=== PATIENT | male | born 1980 | race Caucasian/White ===

== ENCOUNTER 2016-09-07 00:19 | Emergency (ER) | payer OTHER ==
[~2016-09-07] VITALS: Ht 180.3 cm; Wt 81.8 kg
[~2016-09-07 00:19] MED LIST: AMOXICILLIN 8751 TAB PO; DOXYCYCLINE 10100 MG PO; FLAGYL500 MG PO; LEVAQUIN 5500 MG/TA1 PO; NO HOME MEDICATIONS; NORCO 325 MG-51 TAB PO; PERCOCET 325 MG1 TA2 PO; TAMIFLU 75MG75 MG PO; ZOFRAN 4MG T4 MG/TAB PO
[2016-09-07 00:21] VITALS: BP 132/82; PULSE 80; TEMP 98.7
[2016-09-07] MEDS ORDERED: ULTRAM 50MG TAB50 MG PO (01:03)
== END 2016-09-07 01:14 | disposition home or self-care (01) ==
LOC: COL.ER 00:19
DX: S90.112A Contusion of left great toe without damage to nail, initial encounter (principal); W22.8XXA Striking against or struck by other objects, initial encounter; Y92.009 Unspecified place in unspecified non-institutional (private) residence as the place of occurrence of the external cause

== ENCOUNTER → 2016-09-18 | Outpatient (CLI) | payer OTHER ==
[~2016-09-18] MED LIST changes: +ULTRAM 50MG TAB50 MG PO
== END ==
LOC: COL.RAD 13:02
DX: S90.112A Contusion of left great toe without damage to nail, initial encounter (principal); X58.XXXA Exposure to other specified factors, initial encounter

== ENCOUNTER → 2017-06-11 | Outpatient (CLI) | payer OTHER | LOC: COL.RAD 15:55 | DX: R14.0 Abdominal distension (gaseous) (principal) ==

== ENCOUNTER → 2017-06-17 | Outpatient (CLI) | payer OTHER | LOC: COL.RAD 07:30 | DX: K44.9 Diaphragmatic hernia without obstruction or gangrene (principal); K76.0 Fatty (change of) liver, not elsewhere classified | CPT/HCPCS: J7050; Q9967 ==

== ENCOUNTER → 2017-07-15 | Outpatient (CLI) | payer OTHER | LOC: COL.RAD 07:26 | DX: R19.7 Diarrhea, unspecified (principal); R10.9 Unspecified abdominal pain; R11.0 Nausea; R14.0 Abdominal distension (gaseous) | CPT/HCPCS: A9541 ==

== ENCOUNTER 2017-08-06 05:58 | Day surgery (SDC) | payer OTHER ==
[~2017-08-06] VITALS: Ht 180.3 cm; Wt 91.0 kg
[2017-08-06 06:33] VITALS: BP 118/96; PULSE 79; TEMP 98.4
[2017-08-06] MEDS ORDERED: DOXYCYCLINE 10100 MG PO (06:41)
[2017-08-06 07:45] VITALS: BP 105/80; PULSE 80; TEMP 97.7
[2017-08-06] MEDS ORDERED: DEXILANT60 MG PO (07:59)
[2017-08-06 08:00] VITALS: BP 111/86; PULSE 79
[2017-08-06] MEDS ORDERED: LEVBID0.375 MG PO (08:12)
[2017-08-06 08:15] VITALS: BP 110/82; PULSE 75
[2017-08-06 08:30] VITALS: BP 104/73; PULSE 65
== END 2017-08-06 08:45 | disposition home or self-care (01) ==
LOC: SDCO 05:58
DX: K21.0 Gastro-esophageal reflux disease with esophagitis (principal); K29.30 Chronic superficial gastritis without bleeding; K30 Functional dyspepsia; K57.30 Diverticulosis of large intestine without perforation or abscess without bleeding; K64.0 First degree hemorrhoids; R10.9 Unspecified abdominal pain; R14.0 Abdominal distension (gaseous); R19.7 Diarrhea, unspecified; K76.0 Fatty (change of) liver, not elsewhere classified
CPT/HCPCS: OP; J2250; J2405; J3010; J7030

== ENCOUNTER → 2020-07-26 | Outpatient (CLI) | payer OTHER ==
[~2020-07-26] MED LIST changes: +DEXILANT60 MG PO; +LEVBID0.375 MG PO
== END ==
LOC: COL.RAD 09:06
DX: K76.89 Other specified diseases of liver (principal); K82.8 Other specified diseases of gallbladder

== ENCOUNTER → 2020-08-12 | Outpatient (CLI) | payer OTHER | LOC: COL.RAD 09:31 | DX: K21.9 Gastro-esophageal reflux disease without esophagitis (principal); K82.8 Other specified diseases of gallbladder | CPT/HCPCS: A9537; J2805 ==

== ENCOUNTER 2020-08-22 21:29 | Observation (INO) | payer OTHER ==
[~2020-08-22] VITALS: Ht 180.3 cm; Wt 94.8 kg
[2020-08-23] MEDS ORDERED: PERCOCET 325 MG1 TA2 PO (00:22)
[2020-08-23 04:47] VITALS: BP 106/73; PULSE 78; TEMP 98
--- NOTE | 2020-08-23 04:53 | NUR ---
Patient up from ER. Alert and oriented x 3. Assessment complete. Patient oriented to room. Patient states pain 10/10 to RLE after moving from streacher to bed, medications given per orders. Cap refill of <3 sec to BLE. RLE in splint, patient states he does have sensation to RLE. IV fluids infusing per orders to . No further needs at this time.
--- NOTE | 2020-08-23 06:08 | NUR ---
Patient doing well, fluids infusing per orders. Will report off to day shift.
--- NOTE | 2020-08-23 06:18 | NUR ---
Notified ortho of consult
--- NOTE | 2020-08-23 06:34 | NUR ---
Dr. Crow in to see patient.
--- NOTE | 2020-08-23 06:52 | NUR ---
Dr Crow has been in to see patient. Lower extremity elevated on pillows. Pt asking for pain medication.
[2020-08-23 08:31] VITALS: BP 102/56; PULSE 72; TEMP 98.3
[2020-08-23 09:33] LABS: HEMATOCRIT 39.6 % (42.0-52.0); HEMOGLOBIN 13.2 g/dl (13.5-18.0); MEAN CELL VOLUME 86 fl (80.0-100.0); MEAN CORPUSCULAR HEMOGLOBIN 29 pg (27.0-31.0); MEAN CORPUSCULAR HGB CONC 33 g/dl (33.0-37.0); MEAN PLATELET VOLUME 9.6 fl (7.4-10.4); PLATELET COUNT 322 K/mm3 (130-400); RED BLOOD COUNT 4.63 M/mm3 (4.20-5.60); REDCELL DISTRIBUTION WIDTH-CV 13.2 % (11.5-14.5)
[2020-08-23 09:39] LABS: INR 1.2 (0.8-3.0); PROTHROMBIN TIME 13.9 SECONDS (9.7-12.8)
[2020-08-23 09:44] LABS: BILIRUBIN,TOTAL 1.1 mg/dL (0.0-1.0); CALCIUM 8.4 mg/dL (8.4-10.2); CREATININE, serum 0.86 (0.66-1.25); MAGNESIUM 1.9 mg/dL (1.6-2.3); POTASSIUM 3.7 mmol/L (3.4-5.0); TOTAL PROTEIN 6.6 gm/dL (6.4-8.2)
--- NOTE | 2020-08-23 10:07 | NUR ---
Pt continues to report having a lot of pain. States the morphine did not help. Radiology coming to get pt for CT scan. Pain medication given.
--- NOTE | 2020-08-23 10:39 | NUR ---
Carloz called and stated that surgery would not be until tomorrow. General diet ordered. Patient is back from CT
[2020-08-23 11:26] VITALS: BP 114/69; PULSE 79; TEMP 98.6
--- NOTE | 2020-08-23 14:55 | NUR ---
Pt resting with eyes closed, even non labored breathing
[2020-08-23 16:08] VITALS: BP 115/70; PULSE 76; TEMP 98
--- NOTE | 2020-08-23 18:58 | NUR ---
Pt reported that the Dilaudid worked much better for him. He is up to the commode at this time. Report given
--- NOTE | 2020-08-23 20:15 | NUR ---
Report received, assumed care for nightman. Assessment complete. A&Ox3. Rating pain to right lower extremity 9/10-described as constant throbbing with intermittent stabbing pains. Dilaudid/hydrocodone given per order. Consent signed for surgery tomorrow-placed on front of chart. Right lower extremity remains in splint/shalonda-elevated on pillows. SCD to left lower extremity. Plan of care discussed for this shift shift to include HS meds/pain meds/NPO at midnight. Verbalizes understanding/denies questions/concerns. Call light in reach. Will monitor.
[2020-08-23 20:38] VITALS: BP 109/73; PULSE 78; TEMP 97.7
--- NOTE | 2020-08-23 22:15 | NUR ---
Called c/o pain to right lower extremity. Rating pain 8/10 on pain scale-described as constant throbbing with intermittent sharp stabs. Dilaudid given per dr schneider. Will continue to monitor.
[2020-08-23 23:39] VITALS: BP 110/69; PULSE 77; TEMP 98.1
[2020-08-24] VITALS (8 sets, daily range): BP systolic 98–124; BP diastolic 68–80; PULSE 68–92; TEMP 97.5–98.5
--- NOTE | 2020-08-24 02:28 | NUR ---
Resting eyes closed. No s/s of pain noted.
--- NOTE | 2020-08-24 04:05 | NUR ---
Called to get up to bedside commode, three assist. Dilaudid given after per dr order for pain rated 8/10 on pain scale-described as constant throbbing with intermittent stabbing pain. Call light in reach. Will monitor.
--- NOTE | 2020-08-24 06:30 | NUR ---
Pt resting with eyes closed, even non labored breathing
[2020-08-24 07:12] LABS: HEMATOCRIT 38.7 % (42.0-52.0); HEMOGLOBIN 12.6 g/dl (13.5-18.0); MEAN CELL VOLUME 88 fl (80.0-100.0); MEAN CORPUSCULAR HEMOGLOBIN 29 pg (27.0-31.0); MEAN CORPUSCULAR HGB CONC 33 g/dl (33.0-37.0); MEAN PLATELET VOLUME 10.3 fl (7.4-10.4); PLATELET COUNT 299 K/mm3 (130-400); REDCELL DISTRIBUTION WIDTH-CV 13.2 % (11.5-14.5)
[2020-08-24 07:17] LABS: CALCIUM 8.4 mg/dL (8.4-10.2); CREATININE, serum 0.91 (0.66-1.25); POTASSIUM 4.1 mmol/L (3.4-5.0)
--- NOTE | 2020-08-24 08:30 | NUR ---
Pt doing well. He states that his pain is better. Ortho doc has been in to see him. Consent signed, awaiting surgery
--- NOTE | 2020-08-24 10:30 | NUR ---
Pt reports to complaints or needs at this time
--- NOTE | 2020-08-24 12:15 | NUR ---
Pt off the floor for surgery
--- NOTE | 2020-08-24 14:11 | NUR ---
SW met with patient to complete intake. Patient states that he lives in [facility] alone, next of kin is daughter Rebeca [phone]. Patient states that he does not have any other people to list at this time. Patient states that he does not utilize any DME and is independent with ADLs. Patient provides that his PCP is Dr. Damon, pharmacy is [facility], and that he is able to afford his medications. Patient provides that he does not have anyone listed as his DPOA at this time, and did not wish to appoint anyone at this time. Patient states that he plans to return to his home [place], and has no concerns with doing so. SW will continue to follow.
--- NOTE | 2020-08-24 20:00 | NUR ---
Report received, assumed care for social welfare research worker. Assessment complete. A&Ox3-drowsy. VS remain stable. Denies nausea/shortness of breath. C/O pain to left shoulder and fingers-described as aches-rating pain 3/10. Denies need for intervention. Right lower extremity with bulky white dressing/[id number] on pillows. Repositioned in bed for more comfort. Currently working on supper tray. IV to left hand with LR@250ml/hr infusing without difficulty. Plan of care discussed for this shift to include HS meds/pain meds/bedrest until AM per dr order/elevation of extremity and ice application. Verbalizes understanding/denies questions/concerns. Call light in reach. Will monitor.
[2020-08-25 00:04] VITALS: BP 112/67; PULSE 84; TEMP 98.1
[2020-08-25 04:44] VITALS: BP 113/68; PULSE 79; TEMP 98.6
[2020-08-25 06:38] LABS: HEMATOCRIT 37.1 % (42.0-52.0); HEMOGLOBIN 11.9 g/dl (13.5-18.0)
[2020-08-25 06:43] LABS: POTASSIUM 3.9 mmol/L (3.4-5.0)
[2020-08-25 07:22] VITALS: BP 104/66; PULSE 78; TEMP 98.3
[2020-08-25 07:29] LABS: MEAN CELL VOLUME 87 fl (80.0-100.0); MEAN CORPUSCULAR HEMOGLOBIN 28 pg (27.0-31.0); MEAN CORPUSCULAR HGB CONC 32 g/dl (33.0-37.0); MEAN PLATELET VOLUME 10.3 fl (7.4-10.4); PLATELET COUNT 301 K/mm3 (130-400); RED BLOOD COUNT 4.25 M/mm3 (4.20-5.60); REDCELL DISTRIBUTION WIDTH-CV 13.2 % (11.5-14.5)
--- NOTE | 2020-08-25 07:44 | NUR ---
PT LAYING IN BED AT THIS TIME, STATES HE HAS SOME SLIGHT PAIN AT THE ANKLE AND ABOVE THE KNEE. CMS STABLE. DENIES ANY NEEDS AT THIS TIME. CALL LIGHT WITHIN REACH. BED ALARM ON.
[2020-08-25] MEDS ORDERED: ASPIRIN E.C. 8181 MG PO (09:04)
[2020-08-25] MEDS ORDERED: NORCO 325 MG-7.1 TAB PO (09:05)
[2020-08-25 11:08] VITALS: BP 100/65; PULSE 86; TEMP 98.8
--- NOTE | 2020-08-25 11:22 | NUR ---
EARNEST met with patient's RN who states that patient may possibly discharge home today 08/25. RN is waiting on PT word and assessment. So far, PT has not assessed patient. EARNEST placed call to Kristie Gerber in finance to address patient's self-pay status for charitable application for this visit as well as eligibility for medicaid. Social work will continue to follow.
--- NOTE | 2020-08-25 12:50 | NUR ---
Patient will discharge home today 08/25 with self and family assist.
== END 2020-08-25 15:15 | disposition home or self-care (01) ==
LOC: COL.ER 21:29 → MEDICAL 08-23 01:44
PROVIDERS: Family Medicine; Orthopaedic Surgery; ADMIT Student in an Organized Health Care Education/Training Program
DX: S89.091A Other physeal fracture of upper end of right tibia, initial encounter for closed fracture (principal); S82.831A Other fracture of upper and lower end of right fibula, initial encounter for closed fracture; K57.32 Diverticulitis of large intestine without perforation or abscess without bleeding; K21.9 Gastro-esophageal reflux disease without esophagitis
CPT/HCPCS: 99232-AI; C1713; C1769; G0378; J0690; J1170; J2270; J2704; J3010; J7030; J7120; L4386

== ENCOUNTER 2021-05-01 12:55 | Emergency (ER) | payer OTHER ==
[~2021-05-01] VITALS: Ht 180.3 cm; Wt 95.5 kg
[~2021-05-01 12:55] MED LIST changes: +ASPIRIN E.C. 8181 MG PO; +NORCO 325 MG-7.1 TAB PO
[2021-05-01 14:45] VITALS: BP 124/95; PULSE 79; TEMP 98.2
== END 2021-05-01 14:47 | disposition home or self-care (01) ==
LOC: COL.ER 12:55
DX: S93.401A Sprain of unspecified ligament of right ankle, initial encounter (principal); W01.0XXA Fall on same level from slipping, tripping and stumbling without subsequent striking against object, initial encounter